=== PATIENT | female | born 1995 | race Caucasian/White ===

== ENCOUNTER 2016-08-19 14:38 | Emergency (ER) | payer OTHER ==
[2016-08-19 14:45] VITALS: BP 111/68
--- NOTE | 2016-08-19 14:53 | ED INFLUENZA/URI COMPLAINT ---
History of Present Illness General Chief Complaint: Upper Respiratory Sx/Fever Stated Complaint: COUGH FEVER SORE THRAOT Source: patient, old records Exam Limitations: no limitations Vital Signs & Intake/Output Vital Signs & Intake/Output Vital Signs Date Time Temp Pulse Resp B/P Pulse O2 O2 Flow FiO2 Ox Delivery Rate 08/19 1445 99.9 100 22 111/68 95 Allergies Coded Allergies: No Known Allergies (08/19/16) Reconcile Medications Azithromycin (Zithromax) 250 MG TABLET 1 DP PO AD bronchitis 2 the first day followed by 1 for days 2-5 Codeine Phosphate/Guaifenesi (Guaifen-Codeine 100-10 MG/5 Ml) 10 MG-100 MG/5 ML LIQUID 10 ML PO TID PRN COUGH Triage Note: PER PT HAS A FEVER X 1 HR AND COUGH, HEAVY MUCOUS IN CHEST SORETHROAT TEMP 99.9 TOOK NYQUIL LAST NIGHT. LMP 08/03/16 Triage Nurses Notes Reviewed? yes Onset: Abrupt Duration: day(s): (2), constant Timing: recent history Severity: mild, moderate Severity Numbers: 6 Prior Episodes/Possible Cause: occassional episodes No Modifying Factors: none Associated Symptoms: cough, nasal congestion, nasal drainage, sore throat : No Patient currently breastfeeds: No HPI: 21-year-old with no medical history active smoker presents emergency room complaining of a productive cough of clear to yellow sputum, congestion rhinorrhea sore throat since yesterday. She reports sick contacts with similar symptoms. She denies any shortness of breath chest pain abdominal pain nausea vomiting or diarrhea. She took NyQuil this morning however states today she's had subjective fevers. She is not taken anything for symptoms otherwise today. No recent travel. No modifying factors or associated symptoms otherwise. (ISAIAS RIZVI) Past History Travel History Traveled to [place] past 21 day No Medical History Any Pertinent Medical History? none Neurological: NONE EENT: NONE Cardiovascular: NONE Respiratory: NONE Gastrointestinal: NONE Hepatic: NONE Renal: NONE Musculoskeletal: NONE Psychiatric: NONE Endocrine: NONE Surgical History Surgical History: none Psychosocial History What is your primary language Angolan Tobacco Use: Current Daily Use Daily Tobacco Use Amount/Type: => 5 Cigarettes daily Family History Hx Contributory? No (ISAIAS RIZVI) Review of Systems Review of Systems Constitutional: Reports: see HPI. All Other Systems: Reviewed and Negative Comments Review of systems: See HPI, All other systems negative. Constitutional, no chills fever, no malaise no weight loss HEENT: No visual changes sore throat congestion, no ear pain Cardiovascular: No chest pain , no palpitation Skin, no rashes, no change in skin Respiratory: No dyspnea cough sputum no hemoptysis GI: No nausea no vomiting, no diarrhea, : No dysuria Muscle skeletal: No joint pain, no back pain, no neck pain, Neurologic: no headache Psych: No stress Heme/endocrine: No bruising no bleeding Immunology: No lymphadenopathy (ISAIAS RIZVI) Physical Exam Physical Exam General Appearance: well developed/nourished, no apparent distress, alert Ears, Nose, Throat: normal ENT inspection, moist mucous membrane Comments: Well-developed well-nourished patient in no apparent distress. Head/Face: Atraumatic, no maxillary/frontal sinus tenderness, no facial swelling Eyes: PERRL, EOMI, no conjunctival injection. No nystagmus Ear:External auditory canal and Tympanic membranes clear, no erythema, no FB. Nose: atraumatic.Normal inspection Throat: Moist mucous membranes.Pharynx normal. No pharyngeal erythema/exudate seen. No stridor/drooling or assymetry. No swelling or edema. Neck: Supple, no lymphadenopathy, FROM Back: FROM, Nontender Cardiovascular: Regular rate and rhythms no murmurs rubs Respiratory: Chest nontender.There were no bony deformities, no asymmetry. No respiratory distress. Patient speaking in full complete sentences. Breath sounds clear to auscultation bilaterally: NO W/R/R Extremities: full range of motion Neuro: Alert and oriented x3 Skin: Warm & dry;No appreciable rash on exposed skin Psych: Mood affect normal, normal memory normal judgment. Core Measures Severe Sepsis Present: No Septic Shock Present: No (ISAIAS RIZVI) Progress Differential Diagnosis: influenza, otitis, pneumonia, pharyngitis, sinusitis, BRONCHITIS Plan of Care: Patient clinically appears well speaking in full complete sentences lungs are clear auscultation and discussed with her that I do not believe she requires workup including x-ray and blood work at this time which she is in agreement with. I answered all of her questions she feels comfortable this plan prescription for Robitussin with codeine Z-Reece provided, answered all her questions cleared for discharge Initial ED EKG: none (ISAIAS RIZVI) Departure Departure Time of Disposition: 1457 Disposition: HOME OR SELF CARE Condition: Stable Clinical Impression Primary Impression: Bronchitis Referrals: PATIENT HAS NO PRIMARY CARE DR (PCP/Family) Additional Instructions: Follow-up with your primary care physician if symptoms persist. Z-Reece as directed Robitussin with codeine for coug, use caution as this may make you drowsy. Tylenol Motrin for fevers chills as needed use bbsx-pdu-axydoth counter Flonase. Return with any concerns these were sent to [facility] pharmacy [place] Departure Forms: Customer Survey General Discharge Information Prescriptions: Current Visit Scripts Azithromycin (Zithromax) 1 DP PO AD #6 TAB 2 the first day followed by 1 for days 2-5 Codeine Phosphate/Guaifenesi (Guaifen-Codeine 100-10 MG/5 Ml) 10 ML PO TID PRN COUGH #150 ML (ISAIAS RIZVI) PA/METAL CONTROL WORKER Co-Sign Statement Statement: ED Attending supervision documentation- [] I saw and evaluated the patient. I have also reviewed all the pertinent lab results and diagnostic results. I agree with the findings and the plan of care as documented in the PA's/METAL CONTROL WORKER's documentation. [X] I have reviewed the ED Record and agree with the PA's/METAL CONTROL WORKER's documentation. [] Additions or exceptions (if any) to the PAs/METAL CONTROL WORKER's note and plan are summarized below: [] (KIRT MCCLAIN,YOSELYN Silvestre)
[2016-08-19] MEDS ORDERED: ZITHROMAX250 M2 PO (15:01)
[2016-08-19] MEDS ORDERED: GUAIFEN-CODEIN118 M1 PO (15:01)
== END 2016-08-19 15:06 ==
LOC: ERH 14:38
DX: J40 Bronchitis, not specified as acute or chronic (principal); Z72.0 Tobacco use